=== PATIENT | male | born 1955 | race Caucasian/White ===

== ENCOUNTER 2022-05-18 09:29 | Emergency (ER) | payer MEDICARE, OTHER ==
[~2022-05-18] VITALS: Ht 188 cm; Wt 108.0 kg
[2022-05-18 10:15] LABS: BASOPHILS # (AUTO) 0.1 10^3/uL (0.0-0.1); BASOPHILS % (AUTO) 1 % (0-10); EOSINOPHILS # (AUTO) 0.1 10^3/uL (0.0-0.3); EOSINOPHILS % (AUTO) 2 % (0-10); HEMATOCRIT 44 % (40-54); HEMOGLOBIN 14.6 g/dL (13.3-17.7); LYMPHOCYTES # (AUTO) 1.8 10^3/uL (1.0-4.0); LYMPHOCYTES % (AUTO) 26 % (12-44); MEAN CORPUSCULAR HEMOGLOBIN 30 pg (25-34); MEAN CORPUSCULAR HGB CONC 33 g/dL (32-36); MEAN CORPUSCULAR VOLUME 91 fL (80-99); MEAN PLATELET VOLUME 9.2 fL (9.0-12.2); MONOCYTES # (AUTO) 0.5 10^3/uL (0.0-1.0); MONOCYTES % (AUTO) 8 % (0-12); NEUTROPHILS # (AUTO) 4.4 10^3/uL (1.8-7.8); NEUTROPHILS % (AUTO) 63 % (42-75); PLATELET COUNT 263 10^3/uL (130-400); WHITE BLOOD COUNT 6.9 10^3/uL (4.3-11.0)
--- NOTE | 2022-05-18 10:22 | ED Cardiac General ---
History of Present Illness General Chief Complaint: Cardiac/General Problems Stated Complaint: LOW HR Nursing Triage Note: PT SENT HERE FROM [facility] [place] WITH CC OF BRADYCARDIA AND DIZZINESS, RATE IN THE 40'S, PT STATES HE NORMALLY RUNS IN THE 50'S. PT WAS TOLD HE HAD WATER ON THE EAR AT [facility] AND WAS GIVEN A MED, NOT SURE THE NAME AT THIS TIME Source: patient Exam Limitations: no limitations History of Present Illness Date Seen by Provider: May 18, 2022 Time Seen by Provider: 09:31 Initial Comments 66-year-old male with PMH of bradycardia coming in due to feeling light headed and having a low heart rate. Went to the [facility] clinic and was given a medicine for dizziness, was told it could be from fluid in his right ear. He is unsure of the name of the medicine. Had been doing better for about a week and had dizziness again today so went back to the clinic. HR was in the 40's so referred here. He says his heart rate has been normally in the 50's without any issue for many years. Denies any chest pain, syncope, headache, vision changes, SOB, abd pain, n/v/d, weakness, numbness, or any other concerns. Has been eating and drinking normally. He takes no medications daily otherwise. 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 Allergies and Home Medications Allergies Coded Allergies: No Known Drug Allergies (Unverified , 05/18/22) Patient Home Medication List Home Medication List Reviewed: Yes Review of Systems Review of Systems Constitutional: No fever EENTM: No Blurred Vision Respiratory: Denies Cough Cardiovascular: Denies Chest Pain, Denies Syncope Gastrointestinal: Denies Abdominal Pain Genitourinary: No Symptoms Reported Musculoskeletal: no symptoms reported Skin: no symptoms reported Psychiatric/Neurological: Other (light headed) Endocrine: No Symptoms Reported Hematologic/Lymphatic: No Symptoms Reported All Other Systems Reviewed Negative Unless Noted: Yes Past Uiyztux-Vpwpym-Rllwni Hx Patient Social History Tobacco Use?: No Substance use?: No Alcohol Use?: Yes Alcohol type: Beer Alcohol Frequency: Rarely Immunizations Up To Date First/Initial COVID19 Vaccinat: ONE SHOT COVID19 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 oz. kg; 30.00 BMI Method: General Appearance: No Apparent Distress, WD/WN HEENT: PERRL/EOMI, TMs Normal, Normal ENT Inspection, Pharynx Normal Neck: Full Range of Motion, Normal Inspection, Non Tender, Supple Respiratory: Chest Non Tender, Lungs Clear, Normal Breath Sounds, No Accessory Muscle Use, No Respiratory Distress Cardiovascular: Regular Rate, Rhythm, No Edema, Normal Peripheral Pulses Gastrointestinal: Normal Bowel Sounds, Non Tender, Soft; No Distended, No Guarding Extremity: Normal Capillary Refill, Normal Inspection, Normal Range of Motion, Non Tender, No Calf Tenderness, No Pedal Edema Neurologic/Psychiatric: Alert, Oriented x3, No Motor/Sensory Deficits, Normal Mood/Affect, unbundler II-XII Norm as Tested, Other (normal gait and tandem gait, normal finger to nose, normal visual acuity and visual flowers) Skin: Normal Color, Warm/Dry Lymphatic: No Adenopathy Progress/Results/Core Measures Results/Orders Lab Results Laboratory Tests Test 05/18/22 09:55 Range/Units White Blood Count 6.9 4.3-11.0 10^3/uL Red Blood Count 4.83 4.30-5.52 10^6/uL Hemoglobin 14.6 13.3-17.7 g/dL Hematocrit 44 40-54 % Mean Corpuscular Volume 91 80-99 fL Mean Corpuscular Hemoglobin 30 25-34 pg Mean Corpuscular Hemoglobin Concent 33 32-36 g/dL Red Cell Distribution Width 13.0 10.0-14.5 % Platelet Count 263 130-400 10^3/uL Mean Platelet Volume 9.2 9.0-12.2 fL Immature Granulocyte % (Auto) 0 % Neutrophils (%) (Auto) 63 42-75 % Lymphocytes (%) (Auto) 26 12-44 % Monocytes (%) (Auto) 8 0-12 % Eosinophils (%) (Auto) 2 0-10 % Basophils (%) (Auto) 1 0-10 % Neutrophils # (Auto) 4.4 1.8-7.8 10^3/uL Lymphocytes # (Auto) 1.8 1.0-4.0 10^3/uL Monocytes # (Auto) 0.5 0.0-1.0 10^3/uL Eosinophils # (Auto) 0.1 0.0-0.3 10^3/uL Basophils # (Auto) 0.1 0.0-0.1 10^3/uL Immature Granulocyte # (Auto) 0.0 0.0-0.1 10^3/uL Prothrombin Time 13.0 12.2-14.7 SEC INR Comment 0.9 0.8-1.4 Activated Partial Thromboplast Time 26 24-35 SEC Sodium Level 142 135-145 MMOL/L Potassium Level 4.2 3.6-5.0 MMOL/L Chloride Level 109 H 98-107 MMOL/L Carbon Dioxide Level 21 21-32 MMOL/L Anion Gap 12 5-14 MMOL/L Blood Urea Nitrogen 18 7-18 MG/DL Creatinine 1.20 0.60-1.30 MG/DL Estimat Glomerular Filtration Rate 66 BUN/Creatinine Ratio 15 Glucose Level 112 H 70-105 MG/DL Calcium Level 9.0 8.5-10.1 MG/DL Corrected Calcium 8.9 8.5-10.1 MG/DL Magnesium Level 1.9 1.6-2.4 MG/DL Total Bilirubin 0.6 0.1-1.0 MG/DL Aspartate Amino Transf (AST/SGOT) 16 5-34 U/L Alanine Aminotransferase (ALT/SGPT) 15 0-55 U/L Alkaline Phosphatase 72 40-136 U/L Troponin I < 0.028 <0.028 NG/ML B-Type Natriuretic Peptide 95.9 <100.0 PG/ML Total Protein 6.8 6.4-8.2 GM/DL Albumin 4.1 3.2-4.5 GM/DL My Orders Orders - VANDANA KNIGHT MD Ekg Tracing (05/18/22 09:42) Ekg Tracing (05/18/22 09:44) Monitor-Rhythm Ecg Trace Only (05/18/22 09:44) Cbc With Automated Diff (05/18/22 10:05) Magnesium (05/18/22 10:05) Chest 1 View, Ap/Pa Only (05/18/22 10:05) Comprehensive Metabolic Panel (05/18/22 10:05) Protime With Inr (05/18/22 10:05) Partial Thromboplastin Time (05/18/22 10:05) O2 (05/18/22 10:05) Ed Iv/Invasive Line Start (05/18/22 10:05) Bnp Valeria (05/18/22 10:05) Troponin I [place] (05/18/22 10:05) Lactated Ringers (Lr 1000 Ml Iv Solution (05/18/22 10:36) Vital Signs/I&O 05/18/22 09:50 Temp 36.7 Pulse 47 Resp 16 B/P (MAP) 145/117 (126) Pulse Ox 97 O2 Delivery Room Air Blood Pressure Mean: 126 Progress Progress Note : Progress Note 66-year-old male with above history coming in as referral from the urgent care due to bradycardia and feeling dizzy. ABCs were intact and vitals were stable on presentation although he is bradycardic. Patient explains that he has been bradycardic for many years, heart rate as low as 50, sometimes high 40s. He has never been symptomatic with this and nothing has ever been done. He has never had follow-up with any type of coal washer. He denies any syncope, palpitations, chest pain, shortness of breath, weakness, numbness, or any other concerns associated with it. His blood pressure is actually hypertensive with it. In regards to him feeling dizzy it seems more like it is lightheadedness with standing. 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 His neuro exam is intact with no focal abnormalities. He is showing no signs of stroke with an NIH of 0. He will be given a gentle bolus of IV fluids. EKG sinus bradycardia, cardiac biomarkers unremarkable. Chest x-ray unremarkable. We will have him follow-up with a coal washer given he never has had follow-up, and otherwise I believe he stable for discharge with outpatient follow-up Initial ECG Impression Date: May 18, 2022 Initial ECG Impression Time: 09:48 Initial ECG Rate: 59 Initial ECG Rhythm: S.Justin Comment Narrow QRS, normal axis, no significant ST changes or T wave abnormalities, frequent PVCs Diagnostic Imaging Diagonstic Imaging: Xray (chest) Comments [facility] [place], [place] NAME: FAIZAN ZUNIGA REC#: [id number] PT STATUS: REG ER : 1955 PHYSICIAN: VANDANA KNIGHT MD ADMIT DATE: 05/18/22/ER Draft Date of Exam:05/18/22 CHEST 1 VIEW, AP/PA ONLY INDICATION: Low heart rate and chest pain. Time of Exam: 10:22 AM No prior studies are available for comparison. Heart size is normal. There is calcified granuloma in the left lower lung field. No infiltrates are seen. There is no effusion or pneumothorax. IMPRESSION: No acute cardiopulmonary process is detected. Dictated on workstation # [id number] Dict: 05/18/22 1036 Trans: 05/18/22 1039 ÓSCAR [id number] Interpreted by: GUILLAUME MAHER MD Electronically signed by: Departure Impression Primary Impression: Orthostatic dizziness Additional Impression: Bradycardia Disposition: 01 HOME, SELF-CARE Condition: Improved Departure-Patient Inst. Decision time for Depature: 11:10 Referrals: NO,LOCAL PHYSICIAN (PCP) Primary Care Physician SUNNI GONSALEZ JR, MD Patient Instructions: Bradycardia (DC) Add. Discharge Instructions: I think it is likely you are mildly dehydrated. Be sure to drink plenty of fluids. You do not take the medicine that they prescribed you anymore as I do not see any fluid behind your ears today. I would recommend you follow-up with a coal washer at least once just to have an evaluation for your low heart rate. If you begin feeling any chest pain, shortness of breath, feeling like you are going to pass out, or any other concerns then please come back to the ER Work/School Note: Work Release Form Date Seen in the Emergency Department: May 18, 2022 Return to Work: May 19, 2022 Restrictions: No Restrictions VANDANA KNIGHT MD May 18, 2022 10:22
[2022-05-18 10:26] LABS: INR 0.9 (0.8-1.4)
[2022-05-18 10:27] LABS: ALBUMIN 4.1 GM/DL (3.2-4.5); POTASSIUM 4.2 MMOL/L (3.6-5.0)
[2022-05-18 10:29] LABS: TOTAL PROTEIN 6.8 GM/DL (6.4-8.2)
[2022-05-18 10:31] LABS: BILIRUBIN,TOTAL 0.6 MG/DL (0.1-1.0)
[2022-05-18 10:33] LABS: CREATININE SERUM 1.2 MG/DL (0.60-1.30)
[2022-05-18 10:36] LABS: MAGNESIUM 1.9 MG/DL (1.6-2.4)
[2022-05-18] MEDS ORDERED: LACTATED RINGERS 1,000 ML IV STA (10:36)
--- NOTE | 2022-05-18 10:39 | Diagnostic Imaging Report ---
INDICATION: Low heart rate and chest pain. Time of Exam: 10:22 AM No prior studies are available for comparison. Heart size is normal. There is calcified granuloma in the left lower lung field. No infiltrates are seen. There is no effusion or pneumothorax. IMPRESSION: No acute cardiopulmonary process is detected. Dictated by: Dictated on workstation # [id number]
[2022-05-18 11:35] VITALS: BP 151/79
== END 2022-05-18 11:35 | disposition home or self-care (01) ==
LOC: ER 09:32
DX: R42 Dizziness and giddiness (principal); R00.1 Bradycardia, unspecified; Z28.311 Partially vaccinated for COVID-19
CPT/HCPCS: 36415; 71045; 80053; 83735; 83880; 84484; 85025; 85610; 85730; 93005; 93041

== ENCOUNTER → 2022-05-23 | Outpatient (CLI) | payer MEDICARE, OTHER | LOC: CARD 12:37 | PROVIDERS: ATTEND Internal Medicine Cardiovascular Disease | DX: I44.30 Unspecified atrioventricular block (principal); I45.10 Unspecified right bundle-branch block; I49.3 Ventricular premature depolarization | CPT/HCPCS: 93225; 93226 ==

== ENCOUNTER → 2022-05-25 | Outpatient (CLI) | payer MEDICARE, OTHER | LOC: CARDFS 11:55 | PROVIDERS: ATTEND Internal Medicine Cardiovascular Disease | DX: I51.7 Cardiomegaly (principal); I49.3 Ventricular premature depolarization | CPT/HCPCS: 93306 ==

== ENCOUNTER → 2022-06-08 | Outpatient (CLI) | payer MEDICARE, OTHER ==
[~2022-06-08] VITALS: Ht 185 cm; Wt 104.0 kg
[2022-06-08] MEDS: CATHETER FLUSH 10 ML SYR IVP PRN (08:06)
[2022-06-08 09:24] VITALS: BP 145/82
--- NOTE | 2022-06-09 08:38 | NUCLEAR STRESS TEST ---
TREADMILL NUCLEAR STRESS TEST Date of procedure: 06/08/2022. Primary care provider: Israel Herrera DO. Admitting physician: Jori aCnela Jr., MD. INDICATION: Ventricular premature complexes. BASELINE ELECTROCARDIOGRAM: Sinus bradycardia at 53 bpm. STRESS TEST PROCEDURE: The patient was exercised for a total of 3 minutes and 42 seconds of the standard Giancarlo protocol achieving a maximum MET level of 5.4. The resting heart rate was 53 bpm and the peak heart rate was 144 bpm, which represents 94% of the maximum predicted heart rate. The resting blood pressure was 145/82 mmHg and the peak blood pressure was 180/69 mmHg. This represents a normal heart rate and a normal blood pressure response to exercise. The test was stopped due to target heart rate attained. There was no chest discomfort during the test. There were frequent, isolated premature ventricular complexes during the test. There were no significant stress induced electrocardiogram changes. The patient exhibited good exercise capacity for age. NUCLEAR PROCEDURE: The patient was administered 10.5 mCi of intravenous technetium 99m Tetrofosmin at rest for the rest images. The patient was subsequently administered 29.9 mCi of intravenous technetium 99 M Tetrofosmin at peak stress for the stress images. Following an appropriate wait after each injection, imaging was obtained. The images were subsequently processed and reformatted in the usual views. Gated imaging was obtained. The image quality was adequate with a mild degree of gastrointestinal attenuation artifact. CT attenuation correction was used as a adjunct to standard imaging. Both the corrected and uncorrected images were reviewed for interpretation. NUCLEAR RESULTS: There was a small, mild intensity, reversible distal septal and apical defect with a small amount of inducible ischemia with a summed stress score of 3 and a summed difference score of 3. There was normal left ventricular chamber size with an end-diastolic volume of 88 mL and an end- systolic volume of 40 mL. There was no evidence of transient ischemic dilatation. The TID ratio was 0.92. There was normal wall motion in all segments with a calculated ejection fraction of 54%. IMPRESSION: 1. Normal heart rate and blood pressure response to exercise. 2. There was no exercise-induced chest discomfort or electrocardiogram changes. 3. There were frequent, isolated premature ventricular complexes during exercise. 4. The patient exhibited good exercise capacity for age at 3 minutes and 42 seconds of the Giancarlo protocol. 5. There was a small, mild intensity, reversible distal septal and apical defect with a small amount of inducible ischemia with a summed stress score of 3 and a summed difference score of 3. 6. There was normal wall motion in all segments with a calculated ejection fraction of 54%. 7. This is an abnormal result representing an overall low risk for possible future coronary ischemic events. Certain portions of this document may have been dictated utilizing voice recognition technology. Inherent to this technology, typographical and grammatical errors may exist. As much as I am diligent to identify and correct these mistakes, some errors may remain in the document. JORI CANELA JR, MD Jun 09, 2022 08:38
== END ==
LOC: CARD 07:48
PROVIDERS: ATTEND Internal Medicine Cardiovascular Disease
DX: I49.3 Ventricular premature depolarization (principal)
CPT/HCPCS: 78452; 93017; A9502

== ENCOUNTER → 2022-07-27 | Outpatient (CLI) | payer MEDICARE, OTHER | LOC: CARD 09:08 | PROVIDERS: ATTEND Internal Medicine Cardiovascular Disease | DX: I47.1 Supraventricular tachycardia (principal) | CPT/HCPCS: 93225; 93226 ==